=== PATIENT | female | born 1980 | race Caucasian/White ===

== ENCOUNTER 2017-03-27 18:54 | Inpatient (IN) | payer MEDICAID ==
[2017-03-28] MEDS ORDERED: LACTATED RINGER'S 1,000 ML IV ×3 (00:46→21:27)
[2017-03-28] MEDS ORDERED: OXYTOCIN 30 UNITS/LR 500 ML IV ×7 (01:00→21:30)
[2017-03-28] MEDS ORDERED: MISOPROSTOL 200 MCG TAB PR ×3 (01:00→21:30)
[2017-03-28] MEDS ORDERED: LIDOCAINE 1% (MPF) 30 ML INJ INJ ×2 (01:00→21:30)
[2017-03-28] MEDS ORDERED: AMPICILLIN 2 GM/NS (PMX) 100 ML IV ×2 (01:00→21:30)
[2017-03-28] MEDS ORDERED: METHYLERGONOVINE 0.2 MG INJ IM ×3 (01:00→21:30)
[2017-03-28] MEDS ORDERED: CARBOPROST 250 MCG INJ IM ×3 (01:00→21:30)
[2017-03-28] MEDS ORDERED: BUTORPHANOL 2 MG INJ IV (01:00)
[2017-03-28] MEDS: LACTATED RINGER'S 1,000 ML IV ×5 (01:55→12:34)
[2017-03-28 02:18] LABS: ADD MAN DIFF? NO
[2017-03-28 02:22] LABS: WHITE BLOOD COUNT 7.9 10^3/ul (4.8-10.8)
[2017-03-28 02:22] LABS: BASOPHILS % 0.3 % (0.0-2.0); EOSINOPHILS # 0.1 10^3/ul (0.0-0.5); EOSINOPHILS % 0.8 % (0.0-7.0); HEMATOCRIT 37.1 % (37.0-47.0); HEMOGLOBIN 12.3 g/dl (12.0-16.0); LYMPHOCYTES # 2.1 10^3/ul (0.8-2.9); LYMPHOCYTES % 26.7 % (15.0-51.0); MEAN CORPUSCULAR HEMOGLOBIN 28.9 pg (29.0-33.0); MEAN CORPUSCULAR HGB CONC 33.2 g/dl (32.0-37.0); MEAN CORPUSCULAR VOLUME 87.3 fl (82.0-101.0); MEAN PLATELET VOLUME 11.4 fl (7.4-10.4); MONOCYTE # 0.6 10^3/ul (0.3-0.9); MONOCYTES % 7.9 % (0.0-11.0); NEUTROPHIL # 5.1 10^3/ul (1.6-7.5); NEUTROPHILS % 63.5 % (39.0-77.0); PLATELET COUNT 203 10^3/UL (140-415); RED BLOOD COUNT 4.25 10^6/ul (4.20-5.40); RED CELL DISTRIBUTION WIDTH 14.1 % (11.5-14.5)
[2017-03-28 02:46] LABS: INR 0.95; PARTIAL THROMBOPLASTIN TIME 29.7 Sec (25.0-35.0); PROTIME 12.8 Sec (11.9-14.9)
[2017-03-28] MEDS ORDERED: FENTAnyl 2MCG/ML-ROPIV 0.2% 100 ML (03:18)
[2017-03-28] MEDS ORDERED: NALOXONE (0.4 MG/ML) INJ IV ×2 (04:00→21:30)
[2017-03-28] MEDS ORDERED: ONDANSETRON 4 MG INJ (04:03)
[2017-03-28] MEDS: ONDANSETRON 4 MG INJ IV ×3 (04:05→16:34)
[2017-03-28 04:15] LABS: HEPATITIS B SURFACE ANTIGEN NEGATIVE (NEGATIVE)
[2017-03-28] MEDS: FENTAnyl 2MCG/ML-ROPIV 0.2% 100 ML BAG EPI ×2 (04:19→12:02)
[2017-03-28] MEDS ORDERED: AMPICILLIN 1 GM/NS (PMX) 50 ML IV ×2 (05:00→21:30)
[2017-03-28] MEDS ORDERED: EPHEDrine SULFATE 50 MG/5 ML SYG IV ×2 (05:30→21:30)
[2017-03-28] MEDS ORDERED: EPHEDrine SULFATE 50 MG/5 ML SYG (05:37)
[2017-03-28] MEDS: OXYTOCIN 30 UNITS/LR 500 ML IV ×2 (12:01→18:45)
[2017-03-28 14:28] LABS: RAPID PLASMA REAGIN NONREACTIVE (NR)
[2017-03-28] MEDS: IBUPROFEN 600 MG TAB PO ×2 (19:02→23:34)
[2017-03-28] MEDS ORDERED: FENTAnyl 2MCG/ML-ROPIV 0.2% 100 ML BAG EPI (21:30)
[2017-03-28] MEDS ORDERED: ONDANSETRON 4 MG INJ IV (21:30)
[2017-03-28] MEDS ORDERED: IBUPROFEN 600 MG TAB PO (21:30)
[2017-03-28] MEDS: HYDROCODONE/APAP (5/325) TAB PO (22:08)
[2017-03-29] MEDS: OXYTOCIN 30 UNITS/LR 500 ML IV (00:37)
[2017-03-29] MEDS: HYDROCODONE/APAP (5/325) TAB PO ×2 (03:23→16:05)
[2017-03-29] MEDS: IBUPROFEN 600 MG TAB PO ×3 (05:38→17:40)
[2017-03-29] MEDS: ESCITALOPRAM 10 MG TAB PO ×2 (09:31→20:59)
[2017-03-29] MEDS: SENNA/DOCUSATE NA (8.6MG/50MG) TAB PO ×2 (09:31→20:59)
[2017-03-29 11:53] LABS: ADD MAN DIFF? NO
[2017-03-29 12:12] LABS: BASOPHILS % 0.4 % (0.0-2.0); EOSINOPHILS # 0.1 10^3/ul (0.0-0.5); EOSINOPHILS % 0.7 % (0.0-7.0); HEMATOCRIT 31.4 % (37.0-47.0); HEMOGLOBIN 10.3 g/dl (12.0-16.0); LYMPHOCYTES # 2.1 10^3/ul (0.8-2.9); LYMPHOCYTES % 19.5 % (15.0-51.0); MEAN CORPUSCULAR HGB CONC 32.8 g/dl (32.0-37.0); MEAN CORPUSCULAR VOLUME 88.5 fl (82.0-101.0); MEAN PLATELET VOLUME 11.7 fl (7.4-10.4); MONOCYTE # 0.8 10^3/ul (0.3-0.9); MONOCYTES % 7.6 % (0.0-11.0); NEUTROPHIL # 7.7 10^3/ul (1.6-7.5); NEUTROPHILS % 70.8 % (39.0-77.0); PLATELET COUNT 176 10^3/UL (140-415); RED BLOOD COUNT 3.55 10^6/ul (4.20-5.40); RED CELL DISTRIBUTION WIDTH 14.2 % (11.5-14.5)
[2017-03-29 12:12] LABS: WHITE BLOOD COUNT 10.9 10^3/ul (4.8-10.8)
[2017-03-29] MEDS: BENZOCAINE 20% 56 ML SPRAY TOP (16:04)
[2017-03-29] MEDS: LANOLIN 7 GM TUBE TOP (16:04)
[2017-03-29] MEDS: WITCH HAZEL/GLYCERIN PAD PR (17:40)
[2017-03-29] MEDS: INFLUENZA VIRUS VACCINE 0.5 ML SYG IM* (21:00)
[2017-03-30] MEDS: IBUPROFEN 600 MG TAB PO ×4 (01:12→17:38)
[2017-03-30] MEDS: SENNA/DOCUSATE NA (8.6MG/50MG) TAB PO (08:37)
[2017-03-30] MEDS: HYDROCODONE/APAP (5/325) TAB PO (10:25)
== END 2017-03-30 18:45 | disposition home or self-care (01) | DRG 775 ==
LOC: OBT 18:54 → L-D 18:57 → PP1 03-28 22:05
PROVIDERS: Obstetrics & Gynecology
PROC: 10E0XZZ Delivery of Products of Conception, External Approach (ICD-10-PCS; principal; 2017-03-28)
PROC: 0HQ9XZZ Repair Perineum Skin, External Approach (ICD-10-PCS; 2017-03-28)
PROC: 4A1HXCZ Monitoring of Products of Conception, Cardiac Rate, External Approach (ICD-10-PCS; 2017-03-28)
PROC: 3E0234Z Introduction of Serum, Toxoid and Vaccine into Muscle, Percutaneous Approach (ICD-10-PCS; 2017-03-29)
DX: O70.0 First degree perineal laceration during delivery (principal); Z37.0 Single live birth; Z3A.38 38 weeks gestation of pregnancy; Z23 Encounter for immunization
CPT/HCPCS: 62319; 76815; 76818; 85025; 85610; 85730; 86592; 86900; 86901; 87340; 90686

== ENCOUNTER 2017-06-22 10:12 | Day surgery (SDC) | payer MEDICAID ==
[2017-06-22] MEDS: BUPIVACAINE 0.5%/EPI (SDV) 30 ML INJ INJ
[~2017-06-22 10:12] MED LIST: EPHEDrine SULFATE 50 MG/5 ML SYG
[2017-06-22 11:13] LABS: ADD MAN DIFF? NO
[2017-06-22 11:16] LABS: BASOPHILS % 0.6 % (0.0-2.0); EOSINOPHILS # 0.1 10^3/ul (0.0-0.5); EOSINOPHILS % 1.4 % (0.0-7.0); HEMATOCRIT 42.1 % (37.0-47.0); HEMOGLOBIN 13.8 g/dl (12.0-16.0); LYMPHOCYTES # 2.3 10^3/ul (0.8-2.9); MEAN CORPUSCULAR HEMOGLOBIN 28.4 pg (29.0-33.0); MEAN CORPUSCULAR HGB CONC 32.8 g/dl (32.0-37.0); MEAN CORPUSCULAR VOLUME 86.6 fl (82.0-101.0); MEAN PLATELET VOLUME 10.9 fl (7.4-10.4); MONOCYTE # 0.4 10^3/ul (0.3-0.9); MONOCYTES % 5.6 % (0.0-11.0); NEUTROPHIL # 4.1 10^3/ul (1.6-7.5); NEUTROPHILS % 58.7 % (39.0-77.0); PLATELET COUNT 229 10^3/UL (140-415); RED BLOOD COUNT 4.86 10^6/ul (4.20-5.40); RED CELL DISTRIBUTION WIDTH 14.3 % (11.5-14.5)
[2017-06-22 11:21] LABS: ADD UMIC YES; UR ASCORBIC ACID 20 mg/dL (NEGATIVE); UR BILIRUBIN (Dip) NEGATIVE (NEGATIVE); UR BLOOD (Dip) NEGATIVE (NEGATIVE); UR CLARITY CLEAR (CLEAR); UR COLOR YELLOW (YELLOW); UR GLUCOSE (Dip) NEGATIVE (NEGATIVE); UR KETONES (Dip) NEGATIVE (NEGATIVE); UR LEUKOCYTE ESTERASE (Dip) 3+ Leu/ul (NEGATIVE); UR NITRITE (Dip) NEGATIVE (NEGATIVE); UR RBC 2 /HPF (0-5); UR SPECIFIC GRAVITY (Dip) 1.016 (1.003-1.030); UR SQUAMOUS EPITHELIAL CELL FEW /HPF (FEW); UR TOTAL PROTEIN (Dip) NEGATIVE (NEGATIVE); UR UROBILINOGEN (Dip) NEGATIVE (NEGATIVE); UR WBC 13 /HPF (0-5)
[2017-06-22 11:33] LABS: ALANINE AMINOTRANSFERASE 41 IU/L (13-69); ALBUMIN/GLOBULIN RATIO 1.21; ALKALINE PHOSPHATASE 111 IU/L (42-121); ANION GAP 14 (8-16); ASPARTATE AMINO TRANSFERASE 29 IU/L (15-46); BILIRUBIN,INDIRECT 0.6 mg/dl (0-1.1); BILIRUBIN,TOTAL 0.6 mg/dl (0.2-1.3); CARBON DIOXIDE 28 mmol/L (21-31); CHLORIDE 107 mmol/L (97-110); GLUCOSE 86 mg/dl (70-220); TOTAL PROTEIN 7.3 g/dl (6.1-8.1)
[2017-06-22 11:34] LABS: BLOOD UREA NITROGEN 16 mg/dl (7-20); CALCIUM 9.1 mg/dl (8.4-10.2); CREATININE 0.64 mg/dl (0.44-1.00); POTASSIUM 4.3 mmol/L (3.5-5.1)
[2017-06-22 11:35] LABS: SODIUM 145 mmol/L (135-144)
[2017-06-22 12:22] LABS: INR 0.95; PROTIME 12.8 Sec (11.9-14.9)
[2017-06-22 12:23] LABS: PARTIAL THROMBOPLASTIN TIME 30.2 Sec (25.0-35.0)
[2017-06-22] MEDS ORDERED: FENTAnyl 50 MCG/ML VIAL IV ×3 (12:30)
[2017-06-22] MEDS ORDERED: HYDROmorphONE (0.2 MG/ML) 10ML SYG IV ×2 (12:30)
[2017-06-22] MEDS ORDERED: PROCHLORPERAZINE 10 MG INJ IV (12:30)
[2017-06-22] MEDS ORDERED: DIPHENHYDRAMINE 50 MG INJ IV (12:30)
[2017-06-22] MEDS ORDERED: OXYCODONE/ACETAMINOPHEN (5/325) TAB PO ×3 (12:30→14:30)
[2017-06-22] MEDS ORDERED: MEPERIDINE 25 MG INJ IV (12:30)
[2017-06-22] MEDS ORDERED: MIDAZOLAM 1 MG/ML 2 ML INJ (13:08)
[2017-06-22] MEDS ORDERED: PROPOFOL 20 ML (13:09)
[2017-06-22] MEDS ORDERED: SUCCINYLCHOLINE CHLORIDE 100 MG/5 ML SYG IV (13:09)
[2017-06-22] MEDS ORDERED: CEFAZOLIN 1 GM INJ (13:09)
[2017-06-22] MEDS ORDERED: FENTAnyl 50 MCG/ML VIAL (13:09)
[2017-06-22] MEDS ORDERED: LIDOCAINE 2% (SDV) 5 ML INJ (13:09)
[2017-06-22] MEDS ORDERED: ROCURONIUM 50 MG INJ (13:09)
[2017-06-22] MEDS ORDERED: ONDANSETRON 4 MG INJ (13:10)
[2017-06-22] MEDS ORDERED: DEXAMETHASONE 4 MG/ML 1 ML INJ (13:10)
[2017-06-22] MEDS ORDERED: FAMOTIDINE 20 MG INJ (13:10)
[2017-06-22] MEDS ORDERED: SUGAMMADEX SODIUM 200 MG/2 ML VIAL IV (13:47)
[2017-06-22] MEDS ORDERED: KETOROLAC 30 MG INJ (13:48)
[2017-06-22] MEDS ORDERED: IBUPROFEN 600 MG TAB PO (14:30)
[2017-06-22] MEDS ORDERED: morphine 2 MG INJ IV (14:30)
[2017-06-22] MEDS ORDERED: ACETAMINOPHEN 325 MG TAB PO (14:30)
[2017-06-22] MEDS ORDERED: ONDANSETRON 4 MG INJ IV (14:30)
[2017-06-22] MEDS: LACTATED RINGER'S 1,000 ML IV (14:39)
[2017-06-22] MEDS: ONDANSETRON 4 MG INJ IV (14:51)
[2017-06-22] MEDS: HYDROmorphONE (0.2 MG/ML) 10ML SYG IV (14:51)
== END 2017-06-22 15:54 | disposition home or self-care (01) ==
LOC: SDS 10:12
DX: Z30.2 Encounter for sterilization (principal)
CPT/HCPCS: 58670; 80053; 81001; 84703; 85025; 85610; 85730; 86850; 86900; 86901